=== PATIENT | female | born 1945 | race Caucasian/White ===

== ENCOUNTER 2017-02-25 05:51 | Day surgery (SDC) | payer MEDICARE, OTHER ==
[~2017-02-25] VITALS: Ht 170.2 cm; Wt 84.0 kg
[~2017-02-25 05:51] MED LIST: ACET-3088 PO; CA C1TAB15 PO; GLUC-136 PO; LISI10TA7 PO; MULT-806 PO; NAPR220C11 PO; OMEG100016 PO; P EP PO; [UNRECOGNIZED DRUG - CODE] PO
[2017-02-25 05:55] VITALS: BP 146/66; PULSE 64; RESP 16; TEMP 97.9; O2SAT 100; Ht 170.2 cm; Wt 84.0 kg
[2017-02-25] MEDS ORDERED: LIDOCAINE 1% (10mg/ml) 2ml SDV INJ ONE (07:00)
[2017-02-25] MEDS ORDERED: LR 1,000 ML IV SCH (07:00)
--- NOTE | 2017-02-25 07:04 | ANESPREOP ---
Anesthesia Record Date and Time DATE: 02/25/17 TIME: 07:02 Proposed Surgical Procedure COLONOSCOPY NPO since: 2229 Allergies: Coded Allergies: No Known Drug Allergies (Verified Allergy, Unknown, 02/25/17) Ht/Wt/BMI Height: 5 ' 7.00 " Weight: 84.000 kg BMI: 29.0 kg/m2 Vital Signs Date Time Temp Pulse Resp B/P Pulse Ox O2 Delivery O2 Flow Rate FiO2 02/25/17 05:55 97.9 64 16 146/66 100 Room Air Medications Inpatient Medications Current Medications Medications (Trade) Dose Ordered Sig/Jr Start Time Stop Time Status Last Admin Dose Admin Lactated Ringer's (Lactated Ringers) 1,000 ml @ 50 mls/hr Q20H 02/25/17 07:00 02/25/17 06:22 50 MLS/HR Acetaminophen (Tylenol Arthritis) 650 Mg Tablet.er, 2 TAB PO DAILY PRN for PAIN, (Reported) Last Taken: on 02/24/17 0800 Ascorbic Acid (C-1000) 1,000 Mg Tablet, 1 TAB PO DAILY, (Reported) Last Taken: on 02/22/17 1700 Ca Citrate/Mgox/Vit D3/B6/Min (Citracal Plus Tablet) 1 Tab Tablet, 2 TAB PO BID, (Reported) Last Taken: on 02/24/17 0800 Gluc/Clemente-MSM#1/Vit C/Corbin/Bor (Glucosa-Chond- MSM Complex Cplt) 1 Each Tablet, 1 TAB PO BID, (Reported) Last Taken: on 02/22/17 1700 Lisinopril (Lisinopril) 10 Mg Tablet, 10 MG PO HS, (Reported) Take 1 tablet, by mouth, one time a day (at BEDTIME). Last Taken: on 02/24/17 2130 Multivitamins (Multivitamin) 1 Tab Tablet, 1 TAB PO DAILY, (Reported) Last Taken: on 02/23/17 0800 Naproxen Sodium (Aleve) 220 Mg Capsule, 1 CAP PO HS PRN for PAIN, (Reported) Last Taken: on 02/24/17 2130 North Star-3 Fatty Acids ([place] Star-3) 1,000 Mg Capsule , 1,000 MG PO BID, (Reported) Last Taken: on 02/15/17 2130 P-Ephed Sul/Loratadine (Claritin-D 24 Hour Tab Sa) 1 Tab.sr .24 H Tab.sr.24h, 1 TAB.SR PO DAILY, (Reported) Last Taken: on 02/24/170 Discontinued Medications Ascorbic Acid (Vitamin C) 500 Mg Tablet, 500 MG PO DAILY, (Reported) Currently on Beta Gomez: No Medical/Surgical History Anesthesia PMH: Reports: *Hypertension, Arthritis (HANDS), Cardiac Arrythmia ( history of SVT) Smoking Status: Never smoker Use Chewing Tobacco?: No Second Hand Exposure: No Substance Use Type: does not use Alcohol Intake: none HX of Last Menstrual Period: HYST Past Surgical History Orthopedic Surgeries: Yes - RT BUNION,LEFT BUNION, CLAW TOES,R CTR Abdominal Surgeries: Genitourinary Surgeries: Cardiac Surgeries: Endocrine Surgeries: Reproductive Surgeries: Yes - VAG HYST Neurological Surgeries: Ear Surgeries: Nose Surgeries: Throat Surgeries: Other Surgeries: Yes - VEIN-EVLT LT LEG,WISDOM TEETH REMOVED Anesthesia Adverse Reactions: FOUND none Family Hx of Anesthesia Advers: none Hx of Motion Sickness: No Physical Exam Respiratory: Lungs clear Cardiovascular: FOUND Regular rate, rhythm Airway Assessment Mallampati Score: I TMD: 3 Fingerbreadths Neck Extension: Good Overall Assessment: No Airway Concerns ASA: 2 Plan Anesthesia Plan: TIVA, LMA, GETA Discussion Discussed risks/options/alternatives of anesthesia and questions answered. Patient consents. Nursing pain assessment noted. Attestation Statement Prior to the delivery of any anesthetic medication, I examined the patient, developed the plan, obtained the patient's consent and discussed the risk and benefits of the procedure with the patient/guardian. AGUS JAY CRNA Feb 25, 2017 07:04
[2017-02-25] MEDS ORDERED: PROPOFOL 500mg 0 ML IV ONE (07:09)
[2017-02-25 08:12] VITALS: BP 86/53; PULSE 69; RESP 14; TEMP 98.2; O2SAT 94
[2017-02-25 08:20] VITALS: BP 132/75; PULSE 69; RESP 15; O2SAT 100
--- NOTE | 2017-02-25 08:22 | ANESPO ---
Post-Op Note Date 02/25/17 Time: 08:21 Status Pt Participated in Evaluation: Pt participated in person Vital Signs Date Time Temp Pulse Resp B/P Pulse Ox O2 Delivery O2 Flow Rate FiO2 02/25/17 08:20 69 15 132/75 100 Room Air 02/25/17 08:12 98.2 Respiratory Function: Airway patent, Regular respirations Cardiovascular Function: Regular pulse Mental Status: Alert/oriented Pain Level Intensity: 0 Hydration: IV infusing Complications during Recovery None apparent Follow-Up Instructions Instructions Per Surgeon AGUS JAY CRNA Feb 25, 2017 08:22
[2017-02-25] MEDS ORDERED: PROPOFOL 500mg 50 ML IV ONE (08:24)
--- NOTE | 2017-02-25 08:26 | GSPOSTPROC ---
Immediate Operative Note DATE: 02/25/17 TIME: 08:25 Postop Diagnosis: * Mild internal hemorrhoids * Small telangiectasia of the cecum Surgical Procedure: C-scope Surgeon: Abi ASA: 2 SALUD MUELLER MD Feb 25, 2017 08:26
[2017-02-25 08:30] VITALS: BP 121/71; PULSE 54; RESP 16; O2SAT 100
[2017-02-25 08:40] VITALS: BP 123/70; PULSE 59; RESP 17; O2SAT 100
--- NOTE | 2017-02-26 06:46 | OPNOTEF ---
DATE OF OPERATION 02/25/2017 SURGEON Matt Alex MD PREOPERATIVE DIAGNOSIS Screening colonoscopy. POSTOPERATIVE DIAGNOSES 1. Mild internal hemorrhoids. 2. Small telangiectasia of the cecum. PROCEDURE Screening colonoscopy. ANESTHESIA TIVA ASA CLASS 2 INDICATIONS The patient is a 71-year-old female who last had screening colonoscopy on 01/31/2007. She was not having any worrisome symptoms and did not have any family history of colon cancer or colon polyps within first-degree relatives. FINDINGS The colon showed a very small telangiectasia in the cecum with no evidence of bleeding. There was also an area of mild internal hemorrhoids but no other abnormalities. DESCRIPTION OF PROCEDURE After informed consent was obtained, the patient was taken to the endoscopy suite and placed in left lateral decubitus position. IV anesthesia was administered by the anesthesia team. A digital rectal exam was performed and it was normal. The patient had received a MiraLAX/Dulcolax bowel prep the day prior. An Olympus video colonoscope with an AmplifEYE device was inserted and retroflexed to examine the distal rectum. The mild internal hemorrhoids were noted. The scope was returned to a neutral position. It was advanced to the level of the cecum with minimal difficulty. External abdominal wall splinting was required to fully intubate the cecum. The cecum was identified by the appendiceal orifice and ileocecal valve. A small telangiectasia was noted in the cecum. The scope was slowly withdrawn examining the mucosa circumferentially. The bowel prep was excellent with minimal residual liquid contents of the colon that were able to be evacuated via the colonoscope. During scope withdrawal no other abnormalities were noted. Upon reaching the rectum the carbon dioxide insufflation was evacuated and the scope was removed. RECOMMENDATION Consider repeat colonoscopy in 10 years based on health status at that time. MTDD
== END 2017-02-25 08:47 | disposition home or self-care (01) ==
LOC: NSC 05:51
PROVIDERS: ATTEND Surgery
DX: Z12.11 Encounter for screening for malignant neoplasm of colon (principal); K64.8 Other hemorrhoids; I78.1 Nevus, non-neoplastic; I10 Essential (primary) hypertension; I49.3 Ventricular premature depolarization; Z79.1 Long term (current) use of non-steroidal anti-inflammatories (NSAID); Z79.899 Other long term (current) drug therapy
CPT/HCPCS: G0121; J7120